=== PATIENT | male | born 1970 | race Caucasian/White ===

== ENCOUNTER 2019-09-04 19:09 | Emergency (ER) | payer MEDICAID, OTHER ==
[~2019-09-04] VITALS: Ht 177.8 cm; Wt 91.1 kg
--- NOTE | 2019-09-04 19:20 | NUR ---
PT HERE FOR MEDICAL CLEARANCE TO BE [facility]. PT REPORTS HE HAS NO MEDICAL COMPLAINTS. PT REPORTS THEY TOLD HIM HE NEEDS A COVID-19 TEST.
--- NOTE | 2019-09-04 19:36 | NUR ---
PROVIDER DAVID SPOKE WITH PT, WILL RECIEVE MED CLEARANCE AND PT HAS NO INDICATION FOR COVID-19 VIRUS TESTING.
[2019-09-04 19:55] VITALS: BP 139/74
== END 2019-09-04 19:57 | disposition home or self-care (01) ==
LOC: ED 19:25
DX: F33.2 Major depressive disorder, recurrent severe without psychotic features (principal); E78.00 Pure hypercholesterolemia, unspecified
CPT/HCPCS: 99281